=== PATIENT | male | born 1980 | race Caucasian/White ===

== ENCOUNTER 2022-03-05 15:10 | Emergency (ER) | payer OTHER, SELFPAY ==
[2022-03-05] MEDS ORDERED: Diazepam 5 MG TAB ONE (17:03)
[2022-03-05] MEDS ORDERED: Dexamethasone 4 MG TAB ONE (17:03)
[2022-03-05] MEDS ORDERED: Ketorolac Tromethamine 30 MG/ML VIAL ONE (17:03)
[2022-03-05] MEDS ORDERED: traMADol HCl 50 MG TAB ONE (17:04)
== END 2022-03-05 19:35 | disposition home or self-care (01) ==
LOC: CSHERS 15:10
DX: M54.2 Cervicalgia (principal); M54.50 Low back pain, unspecified; E78.5 Hyperlipidemia, unspecified; I10 Essential (primary) hypertension; Z79.899 Other long term (current) drug therapy
CPT/HCPCS: 72125; 72128; 72131; 96372; J1885; J8540

== ENCOUNTER 2022-03-08 15:39 | Emergency (ER) | payer SELFPAY ==
[~2022-03-08 15:39] MED LIST: Magnevist 469MG/ML 20 ML VIAL ONE
[2022-03-08] MEDS ORDERED: Ketorolac Tromethamine 30 MG/ML VIAL ONE (17:33)
== END 2022-03-08 20:56 | disposition home or self-care (01) ==
LOC: CSHERS 15:39
DX: M48.36 Traumatic spondylopathy, lumbar region (principal); I10 Essential (primary) hypertension; E78.5 Hyperlipidemia, unspecified
CPT/HCPCS: 72156; 72157; 72158; 96374; A9579; J1885